=== PATIENT | female | born 2005 | race Caucasian/White ===

== ENCOUNTER 2023-12-02 18:43 | Emergency (ER) | payer MEDICAID, OTHER ==
[~2023-12-02] VITALS: Ht 162.6 cm; Wt 59.1 kg
[2023-12-02] MEDS: ONDANSETRON ODT 4 MG TAB PO ONE (06:00)
[2023-12-02 19:48] VITALS: BP 104/73; PULSE 82
[2023-12-02 21:22] LABS: Basophils # (auto) 0 10 ^3/uL (0-0.2); Basophils % (auto) 0.3 % (0.0-2.0); Eosinophils # (auto) 0.2 10 ^3/uL (0-0.8); Hematocrit 41.4 % (36.0-46.0); Hemoglobin 13.8 g/dL (12.2-16.2); Lymphocytes % (auto) 33.1 % (10.0-50.0); Mean Corpuscular Hemoglobin 30.5 pg (28.0-32.0); Mean Corpuscular Hgb Conc. 33.2 g/dL (32.0-36.0); Mean Corpuscular Volume 91.6 fL (80.0-100.0); Monocytes # (auto) 0.7 10 ^3/uL (0-1.3); Monocytes % (auto) 7.3 % (0.0-12.0); Neutrophils # (auto) 5.2 10 ^3/uL (1.6-8.6); Neutrophils % (auto) 57.3 % (37.0-80.0); Nucleated Red Blood Cells % 0.1 %; Red Blood Cells 4.52 10^6/uL (4.0-5.20); Red Cell Distribution Width 13.2 % (11.8-14.3)
[2023-12-02 21:41] LABS: Alanine Aminotransferase 14 U/L (7-40); Albumin 4.7 g/dL (3.2-4.8); Alkaline Phosphatase 97 U/L (46-116); Anion Gap 6 (5-15); Aspartate Aminotransferase 10 U/L (13-40); BUN/Creatinine Ratio 12.5 (10.0-20.0); Bilirubin, Total 0.3 mg/dL (0.2-1.0); Blood Urea Nitrogen 6 mg/dL (9-23); Carbon Dioxide 26 mmol/L (20-30); Chloride 107 mmol/L (98-107); Glucose 95 mg/dL (74-106); Lipase 48 U/L (12-53); Potassium 3.8 mmol/L (3.5-5.1); Sodium 139 mmol/L (136-145); Total Protein 7.5 g/dL (5.7-8.2)
[2023-12-02] MEDS ORDERED: ZOFR4T PO (22:22)
[2023-12-03 06:38] VITALS: RESP 20; O2SAT 98
== END 2023-12-03 06:40 | disposition home or self-care (01) ==
LOC: ER 18:43
DX: R10.84 Generalized abdominal pain (principal); R10.2 Pelvic and perineal pain; R11.2 Nausea with vomiting, unspecified; Z32.02 Encounter for pregnancy test, result negative
CPT/HCPCS: 36415; 80053; 83690; 84702; 85025

== ENCOUNTER 2024-06-21 21:20 | Emergency (ER) | payer MEDICAID ==
[~2024-06-21] VITALS: Ht 160 cm; Wt 61.5 kg
[~2024-06-21 21:20] MED LIST: ZOFR4T PO
[2024-06-22] MEDS: LIDOCAINE 1% HCL (LOCAL ANESTH.) INJ 20ML MDV ID ONE (01:45)
[2024-06-22 03:00] VITALS: BP 144/80; PULSE 99; RESP 20; TEMP 98.9; O2SAT 99
== END 2024-06-22 03:10 | disposition home or self-care (01) ==
LOC: ER 21:20
DX: L05.91 Pilonidal cyst without abscess (principal)
CPT/HCPCS: 10080; J2001